=== PATIENT | female | born 1955 | race Two or more races ===

== ENCOUNTER 2018-01-29 16:19 | Emergency (ER) | payer BC ==
[2018-01-29 17:22] LABS: Basophils # (auto) 0.1 uL; Basophils % (auto) 0.7 % (0.0-2.0); Eosinophils # (auto) 0.3 uL; Eosinophils % (auto) 1.5 % (0.0-7.0); Hematocrit 46.7 % (36.0-46.0); Hemoglobin 15.4 g/dL (12.2-16.2); Lymphocytes % (auto) 5.5 % (10.0-50.0); Mean Corpuscular Hemoglobin 30.9 pg (28.0-32.0); Mean Corpuscular Hgb Conc. 32.9 g/dL (32.0-36.0); Mean Corpuscular Volume 93.9 fL (80.0-100.0); Monocytes # (auto) 0.7 uL; Neutrophils # (auto) 15.4 uL; Neutrophils % (auto) 88.3 % (37.0-80.0); Nucleated Red Blood Cells % 0.1 %; Platelet Count (auto) 267 10^3/uL (140-450); Red Blood Cells 4.97 10^6/uL (4.0-5.20); Red Cell Distribution Width 13.2 % (11.8-14.3); White Blood Cell 17.5 10^3/uL (4.4-10.8)
[2018-01-29] MEDS: ONDANSETRON HCL 4 MG/2 ML VIAL IV ONE (17:30)
[2018-01-29] MEDS: SODIUM CHLORIDE 0.9% 1,000 ML IVB ONE (17:30)
[2018-01-29] MEDS: PANTOPRAZOLE 40 MG/10 ML VIAL IV STA (17:30)
[2018-01-29] MEDS: MORPHINE SULFATE 4 MG/ML SYR/VIAL IV ONE (17:30)
[2018-01-29 17:36] LABS: Albumin 4.4 g/dL (3.4-5.0); Calcium 9.3 mg/dL (8.5-10.1); Potassium 3.5 mmol/L (3.5-5.1)
[2018-01-29 17:41] LABS: BUN/Creatinine Ratio 20.6; Bilirubin, Total 0.4 mg/dL (0.2-1.0); Total Protein 8.3 g/dL (6.4-8.2)
[2018-01-29 18:56] VITALS: BP 140/88
[2018-01-29 19:35] LABS: Urine Amorphous Crystal FEW /hpf (None Seen); Urine Bacteria NONE SEEN /hpf (None Seen); Urine Blood Negative /uL (Negative); Urine Mucus FEW (None Seen); Urine WBC 1 /hpf (0 - 5)
== END 2018-01-29 19:06 | disposition home or self-care (01) ==
LOC: ER 16:25
DX: K29.70 Gastritis, unspecified, without bleeding (principal); F12.188 Cannabis abuse with other cannabis-induced disorder; E78.5 Hyperlipidemia, unspecified; Z90.89 Acquired absence of other organs; Z98.51 Tubal ligation status
CPT/HCPCS: 36415; 76705; 80053; 81001; 82150; 83690; 85025; 93005; 94761; 96361; 96374; 96375; 99284; C9113; J2270; J2405; J7030